=== PATIENT | female | born 1955 | race Caucasian/White ===

== ENCOUNTER 2017-04-26 23:46 | Inpatient (IN) | payer OTHER ==
[~2017-04-26] VITALS: Ht 152.4 cm; Wt 62.1 kg
[2017-04-26 23:54] VITALS: Ht 152.4 cm; Wt 62.1 kg
[2017-04-27 01:23] LABS: PLATELET COUNT 208 x10^3mcL (130-400); RED CELL DISTRIBUTION WIDTH 12.7 % (11.5-14.5)
[2017-04-27 01:38] LABS: CALCIUM 8.6 mg/dL (8.5-10.1); CARBON DIOXIDE 27.6 mmol/L (21-32); CHLORIDE SERUM 109 mmol/L (98-107); CREATININE SERUM 0.7 mg/dL (0.6-1.0); GFR1 > 60 mL/min; GLUCOSE SERUM 141 mg/dL (74-106); POTASSIUM SERUM 3.4 mmol/L (3.5-5.1); SODIUM SERUM 147 mmol/L (136-145)
[2017-04-27 01:47] LABS: ALBUMIN 3.8 g/dL (3.4-5.0); ALKALINE PHOSPHATASE 82 U/L (46-116); ALT/SGPT 82 U/L (14-59); AST/SGOT 65 U/L (15-37); BILIRUBIN TOTAL 0.2 mg/dL (0.20-1.00); FREE T4 1.22 ng/dL (0.76-1.46); TOTAL PROTEIN, SERUM 7.5 g/dL (6.4-8.2)
[2017-04-27] MEDS ORDERED: BISOPROLOL FUMAR5 MG PO (02:55)
[2017-04-27] MEDS ORDERED: LISINOPRIL2.5 MG PO (02:55)
[2017-04-27 03:51] LABS: T3 TOTAL 1.51 ng/mL
[2017-04-27 04:00] LABS: FREE T4 1.23 ng/dL (0.76-1.46); MAGNESIUM 2.4 mg/dL (1.8-2.4); PHOSPHOROUS 3.2 mg/dL (2.5-4.9); T4(THYROXINE) 8.9 ug/dL (4.7-13.3)
[2017-04-27 04:01] LABS: CHOLESTEROL/HDL RATIO 2.8
[2017-04-27 04:04] VITALS: BP 135/85
[2017-04-27 04:19] VITALS: BP 135/85
[2017-04-27 06:46] LABS: BASOPHIL % 0.4 % (0-2); PLATELET COUNT 194 x10^3mcL (130-400); RED CELL DISTRIBUTION WIDTH 13.4 % (11.5-14.5)
[2017-04-27 07:02] LABS: CALCIUM 8.6 mg/dL (8.5-10.1); CARBON DIOXIDE 28.4 mmol/L (21-32); CHLORIDE SERUM 109 mmol/L (98-107); CREATININE SERUM 0.6 mg/dL (0.6-1.0); GFR1 > 60 mL/min; GLUCOSE SERUM 114 mg/dL (74-106); POTASSIUM SERUM 4.7 mmol/L (3.5-5.1); SODIUM SERUM 147 mmol/L (136-145)
[2017-04-27 09:00] VITALS: BP 118/89
[2017-04-27 13:24] VITALS: BP 118/65
[2017-04-27 17:26] VITALS: BP 126/65
[2017-04-27 18:09] LABS: microscopic required? YES; urine erythrocyte NEGATIVE (NEGATIVE)
[2017-04-27 18:26] LABS: AMPHETAMINE QUAL UR NONE DETECTED (NEG <=1000)
== END 2017-04-27 20:13 | disposition home or self-care (01) | DRG 203 ==
LOC: ED 23:46 → DU 04-27 02:36
PROVIDERS: Emergency Medicine; Family Medicine
DX: R07.9 Chest pain, unspecified (principal); E11.65 Type 2 diabetes mellitus with hyperglycemia; I10 Essential (primary) hypertension; E02 Subclinical iodine-deficiency hypothyroidism; R74.0 Nonspecific elevation of levels of transaminase and lactic acid dehydrogenase [LDH]; Z53.29 Procedure and treatment not carried out because of patient's decision for other reasons; Z79.899 Other long term (current) drug therapy
CPT/HCPCS: 82962; 83880; 84439; 85378; J7030; Q0092